=== PATIENT | male | born 1965 | race Caucasian/White ===

== ENCOUNTER 2021-09-10 16:07 | Inpatient (IN) | payer MEDICAID, SELFPAY ==
[~2021-09-10] VITALS: Ht 170.2 cm; Wt 68.0 kg
[2021-09-10] MEDS ORDERED: NALOXONE HCL 2 MG/2 ML SYR IVP ONE (16:15)
[2021-09-10] MEDS ORDERED: NALOXONE HCL 0.4 MG/ML AMP (NARCAN) ONE (16:17)
[2021-09-10 16:27] VITALS: BP_SYST 112
[2021-09-10] MEDS ORDERED: PIPERACILLIN/TAZO 3.375 GM in NS 50 ML IV ONE (17:00)
[2021-09-10] MEDS ORDERED: NACL 0.9% 2,000 ML IV ONE (17:00)
[2021-09-10] MEDS ORDERED: VANCOMYCIN HCL 1,000 MG in NS 250 ML IV ONE (17:00)
[2021-09-10] MEDS ORDERED: PIPERACILLIN/TAZOBACTAM 3.375 GM/VIAL (ZOSYN) IV ONE (18:03)
[2021-09-10] MEDS ORDERED: VANCOMYCIN HCL 1000 MG/VIAL IV ONE (18:03)
[2021-09-10 18:25] LABS: HEMATOCRIT 33.2 % (36-54); HEMOGLOBIN 10.9 g/dL (14.0-18.0); MEAN CORPUSCULAR HEMOGLOBIN 31 pg (27-31); MEAN CORPUSCULAR HGB CONC 33 % (32-36); MEAN CORPUSCULAR VOLUME 95 fL (79.0-98.0); PLATELET COUNT (AUTO) 244 K/uL (130-430); RED BLOOD CELL COUNT(AUTO) 3.48 MIL/uL (4.2-6.2); RED CELL DISTRIBUTION WIDTH 14.5 % (9.0-15.0); WHITE BLOOD COUNT (AUTO) 13.1 K/uL (4.8-10.8)
[2021-09-10 18:59] LABS: CHLORIDE 88 mmol/L (98-107); GLUCOSE 119 mg/dL (70-99); POTASSIUM 4.8 mmol/L (3.5-5.1); SODIUM SERUM 138 mmol/L (136-145)
[2021-09-10 19:00] LABS: ACETAMINOPHEN < 1 ug/mL (1-30); ALANINE AMINOTRANSFERASE 26 U/L (12-78); ALBUMIN 1.7 g/dL (3.4-4.8); ALCOHOL, BLOOD < 3 mg/dL (<10); ASPARTATE AMINOTRANSFERASE 14 U/L (10-37); CALCIUM 9.3 mg/dL (8.4-11.0); CREATININE 0.34 mg/dL (0.55-1.30); GFR AFRICAN AMERICAN 345 mL/min (>90); TOTAL BILIRUBIN 0.2 mg/dL (0.0-1.0); UREA NITROGEN, BLOOD 19 mg/dL (8-21)
[2021-09-10] MEDS ORDERED: NACL 0.9% 1,000 ML IV ONE (19:00)
[2021-09-10 19:03] LABS: ANION GAP 3 (5-15)
[2021-09-10 19:05] LABS: PROTHROMBIN TIME 10.2 SECS (9.5-12.5)
[2021-09-10 19:54] LABS: BAND % (MANUAL) 36 % (0-6); BASOPHILS % (MANUAL) 0 % (0-2); EOSINOPHILS % (MANUAL) 0 % (0-7); LYMPHOCYTES % (MANUAL) 4 % (20-46); MONOCYTES % (MANUAL) 9 % (0-11)
[2021-09-10] MEDS ORDERED: ALBUTEROL SULFATE 0.083% 2.5 MG/3 ML VIAL.NEB INH ONE (22:30)
[2021-09-10 23:15] LABS: CALCIUM 8.6 mg/dL (8.4-11.0); CREATININE 0.34 mg/dL (0.55-1.30); POTASSIUM 3.9 mmol/L (3.5-5.1)
[2021-09-10 23:18] LABS: BARBITURATE, URINE NEGATIVE (NEG <=200); BENZODIAZEPINE, URINE NEGATIVE (NEG <=150); CANNABINOID, URINE NEGATIVE (NEG <=50); COCAINE, URINE NEGATIVE (NEG <=150); METHAMPHETAMINES SCREEN,URINE NEGATIVE (NEG <=500); OPIATE, URINE NEGATIVE (NEG <=100); PHENCYCLIDINE SCREEN,URINE NEGATIVE (NEG <=25); UR TRICYCLIC ANTIDEPRESSANTS NEGATIVE (NEG <=300); URINE AMPHETAMINE NEGATIVE (NEG <=500); URINE METHADONE NEGATIVE (NEG <=200); URINE OXYCODONE SCREEN NEGATIVE (NEG <=100); URINE PROPOXYPHENE SCREEN NEGATIVE (NEG <=300)
[2021-09-11] VITALS (25 sets, daily range): BP systolic 85–144
[2021-09-11] MEDS ORDERED: PIPERACILLIN/TAZOBACTAM 3.375 GM/VIAL (ZOSYN) IV ONE (03:20)
[2021-09-11] MEDS ORDERED: IPRATROPIUM/ALBUTEROL SULFATE 3 ML AMPUL.NEB (DUONEB) INH PRN (04:30)
[2021-09-11 04:59] LABS: RED CELL DISTRIBUTION WIDTH 14.7 % (9.0-15.0)
[2021-09-11 05:10] LABS: MEAN CORPUSCULAR HGB CONC 33 % (32-36); MEAN CORPUSCULAR VOLUME 95 fL (79.0-98.0); NEUTROPHILS # (AUTO) 10.2 K/uL (1.8-7.7)
[2021-09-11 05:11] LABS: HEMATOCRIT 27.7 % (36-54); HEMOGLOBIN 9.1 g/dL (14.0-18.0); MEAN CORPUSCULAR HEMOGLOBIN 31 pg (27-31); NEUTROPHILS % (AUTO) 81.2 % (40.0-70.0); PLATELET COUNT (AUTO) 236 K/uL (130-430); RED BLOOD CELL COUNT(AUTO) 2.91 MIL/uL (4.2-6.2); WHITE BLOOD COUNT (AUTO) 12.6 K/uL (4.8-10.8)
[2021-09-11 05:12] LABS: EOSINOPHILS % (AUTO) 0.2 % (0.0-4.0); LYMPHOCYTES # (AUTO) 1.2 K/uL (1.0-5.5); LYMPHOCYTES % (AUTO) 9.2 % (20.5-51.5); MONOCYTES # (AUTO) 1.2 K/uL (0.0-1.0); MONOCYTES % (AUTO) 9.4 % (1.7-9.3)
[2021-09-11 05:14] LABS: ALBUMIN 1.3 g/dL (3.4-4.8); CALCIUM 7.9 mg/dL (8.4-11.0); CREATININE 0.4 mg/dL (0.55-1.30); TOTAL BILIRUBIN 0.7 mg/dL (0.0-1.0)
[2021-09-11 05:17] LABS: PHOSPHORUS 0.9 mg/dL (2.7-4.5)
[2021-09-11] MEDS ORDERED: PIPERACILLIN/TAZO 3.375/DEX-IS 50 ML IV SCH (06:00)
[2021-09-11] MEDS ORDERED: AZITHROMYCIN 500 MG in NS 250 ML IV ONE (08:00)
[2021-09-11] MEDS: ACETAMINOPHEN 650 MG/20.3 ML UDC GT PRN (08:07)
[2021-09-11] MEDS ORDERED: LEVO50TA8 GT (08:37)
[2021-09-11] MEDS ORDERED: HYT1 GT (08:37)
[2021-09-11] MEDS ORDERED: DICL20GE TP (08:37)
[2021-09-11] MEDS ORDERED: RILU50TA13 GT (08:37)
[2021-09-11] MEDS ORDERED: ATOR10TA68 GT (08:37)
[2021-09-11] MEDS ORDERED: SER100 GT (08:37)
[2021-09-11] MEDS ORDERED: ACYC400T19 GT (08:37)
[2021-09-11] MEDS ORDERED: MELA1TAB29 GT (08:37)
[2021-09-11] MEDS ORDERED: POLY17PO4 GT (08:37)
[2021-09-11] MEDS ORDERED: VITD400 GT (08:37)
[2021-09-11] MEDS ORDERED: SENN8.6T19 PO (08:37)
[2021-09-11] MEDS ORDERED: SER25 GT (08:37)
[2021-09-11] MEDS ORDERED: PANT40SU2 GT (08:37)
[2021-09-11] MEDS ORDERED: IPRA3AMP9 INH (08:37)
[2021-09-11] MEDS ORDERED: BACL10TA GT (08:37)
[2021-09-11] MEDS ORDERED: HEPA500015 SUBCUT (08:37)
[2021-09-11] MEDS ORDERED: HYDR-3698 GT (08:37)
[2021-09-11] MEDS ORDERED: DIPH25CA83 GT (08:37)
[2021-09-11] MEDS ORDERED: GABA300S GT (08:37)
[2021-09-11] MEDS ORDERED: PRED10TA GT (08:37)
[2021-09-11] MEDS: PANTOPRAZOLE SODIUM 40 MG/VIAL (PROTONIX) IVP SCH (09:19)
[2021-09-11] MEDS: VANCOMYCIN HCL 1,250 MG in NS 250 ML IV SCH ×2 (09:53→16:36)
[2021-09-11] MEDS: PIPERACILLIN/TAZO 3.375/DEX-IS 50 ML IV SCH ×2 (12:33→20:10)
[2021-09-11] MEDS: IPRATROPIUM/ALBUTEROL SULFATE 3 ML AMPUL.NEB (DUONEB) INH SCH ×2 (13:00→19:20)
[2021-09-11] MEDS: NACL 0.9% 1,000 ML IV SCH (16:36)
[2021-09-11] MEDS ORDERED: K PHOS 30 MM in NS 250 ML IV ONE (21:00)
[2021-09-12] VITALS (30 sets, daily range): BP systolic 103–150
[2021-09-12] MEDS: IPRATROPIUM/ALBUTEROL SULFATE 3 ML AMPUL.NEB (DUONEB) INH SCH ×3 (00:19→12:15)
[2021-09-12] MEDS: VANCOMYCIN HCL 1,250 MG in NS 250 ML IV SCH ×2 (00:41→07:43)
[2021-09-12] MEDS: PIPERACILLIN/TAZO 3.375/DEX-IS 50 ML IV SCH ×3 (04:46→20:37)
[2021-09-12 06:07] LABS: EOSINOPHILS # (AUTO) 0.1 K/uL (0.0-0.4); EOSINOPHILS % (AUTO) 0.4 % (0.0-4.0); HEMATOCRIT 29.7 % (36-54); HEMOGLOBIN 9.9 g/dL (14.0-18.0); LYMPHOCYTES # (AUTO) 0.9 K/uL (1.0-5.5); MEAN CORPUSCULAR HEMOGLOBIN 31 pg (27-31); MEAN CORPUSCULAR HGB CONC 33 % (32-36); MEAN CORPUSCULAR VOLUME 94 fL (79.0-98.0); MONOCYTES # (AUTO) 1.8 K/uL (0.0-1.0); NEUTROPHILS % (AUTO) 81.6 % (40.0-70.0); PLATELET COUNT (AUTO) 238 K/uL (130-430); RED BLOOD CELL COUNT(AUTO) 3.16 MIL/uL (4.2-6.2); RED CELL DISTRIBUTION WIDTH 15.2 % (9.0-15.0); WHITE BLOOD COUNT (AUTO) 14.7 K/uL (4.8-10.8)
[2021-09-12 06:33] LABS: ALBUMIN 1.4 g/dL (3.4-4.8); CALCIUM 8.2 mg/dL (8.4-11.0); CREATININE 0.43 mg/dL (0.55-1.30); PHOSPHORUS 4.9 mg/dL (2.7-4.5); TOTAL BILIRUBIN 0.7 mg/dL (0.0-1.0)
[2021-09-12 07:17] LABS: POTASSIUM 2.6 mmol/L (3.5-5.1)
[2021-09-12] MEDS: NACL 0.9% 1,000 ML IV SCH (07:50)
[2021-09-12] MEDS ORDERED: POTASSIUM CHLORIDE 20 MEQ/PKT PACKET PO ONE (08:15)
[2021-09-12] MEDS ORDERED: COMMUNICATION ORDER XX ONE (08:45)
[2021-09-12] MEDS: AZITHROMYCIN 250 MG in NS 250 ML IV SCH (09:06)
[2021-09-12] MEDS: PANTOPRAZOLE SODIUM 40 MG/VIAL (PROTONIX) IVP SCH (09:07)
[2021-09-12] MEDS ORDERED: POTASSIUM CHLORIDE 40 MEQ in D5W 250 ML IV ONE (09:30)
[2021-09-12] MEDS: ACETAMINOPHEN 650 MG/20.3 ML UDC GT PRN (12:26)
[2021-09-13] VITALS (27 sets, daily range): BP systolic 125–153
[2021-09-13 06:08] LABS: LYMPHOCYTES # (AUTO) 0.8 K/uL (1.0-5.5)
[2021-09-13 06:14] LABS: CREATININE 0.91 mg/dL (0.55-1.30)
[2021-09-13 06:20] LABS: POTASSIUM 2.7 mmol/L (3.5-5.1)
[2021-09-13] MEDS: PIPERACILLIN/TAZO 3.375/DEX-IS 50 ML IV SCH ×3 (06:21→21:43)
[2021-09-13] MEDS: NACL 0.9% 1,000 ML IV SCH ×2 (06:21→18:33)
[2021-09-13 06:45] LABS: VANCOMYCIN,RANDOM 23.5 ug/mL
[2021-09-13 07:02] LABS: BASOPHILS % (AUTO) 0.1 % (0.0-2.0); EOSINOPHILS % (AUTO) 0.2 % (0.0-4.0); HEMATOCRIT 31.9 % (36-54); HEMOGLOBIN 10.7 g/dL (14.0-18.0); LYMPHOCYTES % (AUTO) 4.4 % (20.5-51.5); MEAN CORPUSCULAR HEMOGLOBIN 32 pg (27-31); MEAN CORPUSCULAR HGB CONC 33 % (32-36); MEAN CORPUSCULAR VOLUME 95 fL (79.0-98.0); MONOCYTES # (AUTO) 1.3 K/uL (0.0-1.0); MONOCYTES % (AUTO) 7.2 % (1.7-9.3); NEUTROPHILS # (AUTO) 15.5 K/uL (1.8-7.7); NEUTROPHILS % (AUTO) 88.1 % (40.0-70.0); PLATELET COUNT (AUTO) 265 K/uL (130-430); RED BLOOD CELL COUNT(AUTO) 3.38 MIL/uL (4.2-6.2); RED CELL DISTRIBUTION WIDTH 15.5 % (9.0-15.0); WHITE BLOOD COUNT (AUTO) 17.6 K/uL (4.8-10.8)
[2021-09-13] MEDS: IPRATROPIUM/ALBUTEROL SULFATE 3 ML AMPUL.NEB (DUONEB) INH SCH ×3 (07:13→19:44)
[2021-09-13] MEDS: PANTOPRAZOLE SODIUM 40 MG/VIAL (PROTONIX) IVP SCH (08:32)
[2021-09-13] MEDS: AZITHROMYCIN 250 MG in NS 250 ML IV SCH (08:32)
[2021-09-13] MEDS ORDERED: COMMUNICATION ORDER XX ONE (10:30)
[2021-09-13] MEDS ORDERED: POTASSIUM CHLORIDE 20 MEQ/PKT PACKET PO ONE (10:45)
[2021-09-13] MEDS: VANCOMYCIN HCL 1,000 MG in NS 250 ML IV SCH ×2 (11:38→23:13)
[2021-09-13] MEDS: POTASSIUM CHLORIDE 20 mEq in 100 mL (PREMIX) 100 ML x 2 doses IV SCH ×2 (11:42→14:00)
[2021-09-14] MEDS: IPRATROPIUM/ALBUTEROL SULFATE 3 ML AMPUL.NEB (DUONEB) INH SCH ×3 (00:30→23:19)
[2021-09-14 01:00] VITALS: BP_SYST 140
[2021-09-14] MEDS: PIPERACILLIN/TAZO 3.375/DEX-IS 50 ML IV SCH ×3 (03:43→20:12)
[2021-09-14 06:38] LABS: BASOPHILS % (AUTO) 0.1 % (0.0-2.0); EOSINOPHILS # (AUTO) 0.1 K/uL (0.0-0.4); EOSINOPHILS % (AUTO) 0.4 % (0.0-4.0); HEMATOCRIT 29.9 % (36-54); HEMOGLOBIN 9.8 g/dL (14.0-18.0); LYMPHOCYTES # (AUTO) 0.9 K/uL (1.0-5.5); LYMPHOCYTES % (AUTO) 4.6 % (20.5-51.5); MEAN CORPUSCULAR HEMOGLOBIN 31 pg (27-31); MEAN CORPUSCULAR HGB CONC 33 % (32-36); MEAN CORPUSCULAR VOLUME 96 fL (79.0-98.0); MONOCYTES # (AUTO) 1.2 K/uL (0.0-1.0); MONOCYTES % (AUTO) 6.6 % (1.7-9.3); NEUTROPHILS # (AUTO) 16.7 K/uL (1.8-7.7); NEUTROPHILS % (AUTO) 88.3 % (40.0-70.0); PLATELET COUNT (AUTO) 263 K/uL (130-430); RED BLOOD CELL COUNT(AUTO) 3.13 MIL/uL (4.2-6.2); RED CELL DISTRIBUTION WIDTH 15.5 % (9.0-15.0); WHITE BLOOD COUNT (AUTO) 18.9 K/uL (4.8-10.8)
[2021-09-14] MEDS ORDERED: POTASSIUM CHLORIDE 20 MEQ/PKT PACKET GT ONE (07:15)
[2021-09-14 07:53] VITALS: BP_SYST 139
[2021-09-14] MEDS: PANTOPRAZOLE SODIUM 40 MG/VIAL (PROTONIX) IVP SCH (07:59)
[2021-09-14 08:00] VITALS: BP_SYST 139
[2021-09-14] MEDS ORDERED: POTASSIUM CHLORIDE 40 MEQ in NS 250 ML IV ONE (08:00)
[2021-09-14 08:24] LABS: ALBUMIN 1.5 g/dL (3.4-4.8); CALCIUM 8.1 mg/dL (8.4-11.0); CREATININE 1.02 mg/dL (0.55-1.30); TOTAL BILIRUBIN 0.4 mg/dL (0.0-1.0)
[2021-09-14 08:27] LABS: POTASSIUM 2.8 mmol/L (3.5-5.1)
[2021-09-14] MEDS: AZITHROMYCIN 250 MG in NS 250 ML IV SCH (08:59)
[2021-09-14] MEDS: NACL 0.9% 1,000 ML IV SCH (08:59)
[2021-09-14] MEDS ORDERED: *LOVENOX 1MG/KG Q24H/PHARMACY XX ONE (09:45)
[2021-09-14] MEDS ORDERED: ENOXAPARIN SODIUM 40 MG/0.4 ML SYRINGE SUBCUT ONE (10:15)
[2021-09-14] MEDS: VANCOMYCIN HCL 1,000 MG in NS 250 ML IV SCH (10:34)
[2021-09-14 12:00] VITALS: BP_SYST 125
[2021-09-14] MEDS: ACETAMINOPHEN 650 MG/20.3 ML UDC GT PRN (13:16)
[2021-09-14 14:48] LABS: CALCIUM 7.6 mg/dL (8.4-11.0); CREATININE 1.1 mg/dL (0.55-1.30); POTASSIUM 3.8 mmol/L (3.5-5.1)
[2021-09-14 16:00] VITALS: BP_SYST 134
[2021-09-14 20:00] VITALS: BP_SYST 149
[2021-09-14] MEDS: METOCLOPRAMIDE HCL 10 MG/10 ML UDC GT SCH (20:12)
[2021-09-14] MEDS: MELATONIN 5 MG TABLET PO SCH (20:14)
[2021-09-15] MEDS: IPRATROPIUM/ALBUTEROL SULFATE 3 ML AMPUL.NEB (DUONEB) INH SCH ×4 (02:00→20:08)
[2021-09-15 02:01] VITALS: BP_SYST 132
[2021-09-15] MEDS: PIPERACILLIN/TAZO 3.375/DEX-IS 50 ML IV SCH ×3 (03:26→20:47)
[2021-09-15 06:36] LABS: BASOPHILS % (AUTO) 0.1 % (0.0-2.0); EOSINOPHILS # (AUTO) 0.1 K/uL (0.0-0.4); EOSINOPHILS % (AUTO) 0.7 % (0.0-4.0); HEMATOCRIT 31.1 % (36-54); LYMPHOCYTES # (AUTO) 1.4 K/uL (1.0-5.5); LYMPHOCYTES % (AUTO) 7.2 % (20.5-51.5); MEAN CORPUSCULAR HEMOGLOBIN 31 pg (27-31); MEAN CORPUSCULAR HGB CONC 32 % (32-36); MEAN CORPUSCULAR VOLUME 97 fL (79.0-98.0); MONOCYTES # (AUTO) 0.9 K/uL (0.0-1.0); MONOCYTES % (AUTO) 4.9 % (1.7-9.3); NEUTROPHILS # (AUTO) 16.5 K/uL (1.8-7.7); NEUTROPHILS % (AUTO) 87.1 % (40.0-70.0); PLATELET COUNT (AUTO) 289 K/uL (130-430); RED CELL DISTRIBUTION WIDTH 15.6 % (9.0-15.0)
[2021-09-15 06:48] LABS: CALCIUM 8.2 mg/dL (8.4-11.0); CREATININE 1.03 mg/dL (0.55-1.30)
[2021-09-15] MEDS: 0.45% NACL 1,000 ML IV SCH ×3 (08:15→20:25)
[2021-09-15] MEDS: PANTOPRAZOLE SODIUM 40 MG/VIAL (PROTONIX) IVP SCH (08:16)
[2021-09-15] MEDS: METOCLOPRAMIDE HCL 10 MG/10 ML UDC GT SCH ×2 (08:16→22:48)
[2021-09-15] MEDS: ENOXAPARIN SODIUM 40 MG/0.4 ML SYRINGE SUBCUT SCH (08:16)
[2021-09-15 08:43] VITALS: BP_SYST 148
[2021-09-15] MEDS ORDERED: FLUMAZENIL 0.1 MG/ML IVP ONE (10:45)
[2021-09-15 12:00] VITALS: BP_SYST 150
[2021-09-15 13:23] VITALS: BP_SYST 159
[2021-09-15 16:00] VITALS: BP_SYST 140
[2021-09-15 20:52] VITALS: BP_SYST 147
[2021-09-15] MEDS: MELATONIN 5 MG TABLET PO SCH (22:48)
[2021-09-16 01:57] VITALS: BP_SYST 140
[2021-09-16] MEDS: 0.45% NACL 1,000 ML IV SCH ×3 (02:55→23:03)
[2021-09-16] MEDS: IPRATROPIUM/ALBUTEROL SULFATE 3 ML AMPUL.NEB (DUONEB) INH SCH ×4 (03:24→20:19)
[2021-09-16] MEDS: PIPERACILLIN/TAZO 3.375/DEX-IS 50 ML IV SCH ×3 (04:07→20:29)
[2021-09-16 08:00] VITALS: BP_SYST 145
[2021-09-16] MEDS: ENOXAPARIN SODIUM 40 MG/0.4 ML SYRINGE SUBCUT SCH (09:00)
[2021-09-16] MEDS: PANTOPRAZOLE SODIUM 40 MG/VIAL (PROTONIX) IVP SCH (09:00)
[2021-09-16] MEDS: METOCLOPRAMIDE HCL 10 MG/10 ML UDC GT SCH ×2 (09:00→20:29)
[2021-09-16 13:43] VITALS: BP_SYST 143
[2021-09-16 18:08] VITALS: BP_SYST 147
[2021-09-16 20:00] VITALS: BP_SYST 151
[2021-09-16] MEDS: MELATONIN 5 MG TABLET PO SCH (20:29)
[2021-09-16] MEDS: CIPROFLOXACIN LACT 400 MG/D5W 200 ML IV SCH (20:31)
[2021-09-17 01:23] VITALS: BP_SYST 146
[2021-09-17] MEDS: IPRATROPIUM/ALBUTEROL SULFATE 3 ML AMPUL.NEB (DUONEB) INH SCH ×4 (03:20→19:49)
[2021-09-17] MEDS: PIPERACILLIN/TAZO 3.375/DEX-IS 50 ML IV SCH ×3 (03:26→19:38)
[2021-09-17 07:30] LABS: BASOPHILS % (AUTO) 0.2 % (0.0-2.0); EOSINOPHILS # (AUTO) 0.4 K/uL (0.0-0.4); EOSINOPHILS % (AUTO) 1.7 % (0.0-4.0); HEMATOCRIT 34.2 % (36-54); HEMOGLOBIN 11.1 g/dL (14.0-18.0); LYMPHOCYTES % (AUTO) 4.4 % (20.5-51.5); MEAN CORPUSCULAR HEMOGLOBIN 32 pg (27-31); MEAN CORPUSCULAR HGB CONC 33 % (32-36); MEAN CORPUSCULAR VOLUME 97 fL (79.0-98.0); MONOCYTES # (AUTO) 0.9 K/uL (0.0-1.0); MONOCYTES % (AUTO) 3.9 % (1.7-9.3); NEUTROPHILS # (AUTO) 20.6 K/uL (1.8-7.7); NEUTROPHILS % (AUTO) 89.8 % (40.0-70.0); PLATELET COUNT (AUTO) 353 K/uL (130-430); RED BLOOD CELL COUNT(AUTO) 3.54 MIL/uL (4.2-6.2); RED CELL DISTRIBUTION WIDTH 15.3 % (9.0-15.0)
[2021-09-17 08:00] VITALS: BP_SYST 148
[2021-09-17 08:07] LABS: CALCIUM 7.5 mg/dL (8.4-11.0); CREATININE 0.9 mg/dL (0.55-1.30)
[2021-09-17 08:20] LABS: POTASSIUM 2.9 mmol/L (3.5-5.1)
[2021-09-17] MEDS: CIPROFLOXACIN LACT 400 MG/D5W 200 ML IV SCH ×2 (09:53→21:08)
[2021-09-17] MEDS: ENOXAPARIN SODIUM 40 MG/0.4 ML SYRINGE SUBCUT SCH (09:54)
[2021-09-17] MEDS: METOCLOPRAMIDE HCL 10 MG/10 ML UDC GT SCH ×2 (09:54→21:07)
[2021-09-17] MEDS: PANTOPRAZOLE SODIUM 40 MG/VIAL (PROTONIX) IVP SCH (09:54)
[2021-09-17] MEDS: KCL 20 mEq in 100 mL (PREMIX) 100 ML IV SCH ×3 (09:55→14:35)
[2021-09-17] MEDS: 0.45% NACL 1,000 ML IV SCH ×2 (09:56→19:45)
[2021-09-17 12:28] VITALS: BP_SYST 153
[2021-09-17 12:29] VITALS: BP_SYST 153
[2021-09-17] MEDS: ACETAMINOPHEN 650 MG/20.3 ML UDC GT PRN ×2 (15:15→22:35)
[2021-09-17 16:37] VITALS: BP_SYST 146
[2021-09-17 20:00] VITALS: BP_SYST 137
[2021-09-17] MEDS: MELATONIN 5 MG TABLET PO SCH (21:08)
[2021-09-18] MEDS: IPRATROPIUM/ALBUTEROL SULFATE 3 ML AMPUL.NEB (DUONEB) INH SCH ×4 (01:01→19:40)
[2021-09-18] MEDS: 0.45% NACL 1,000 ML IV SCH ×3 (01:45→19:00)
[2021-09-18] MEDS: PIPERACILLIN/TAZO 3.375/DEX-IS 50 ML IV SCH ×3 (03:55→21:01)
[2021-09-18 04:00] VITALS: BP_SYST 142
[2021-09-18 07:08] LABS: BASOPHILS % (AUTO) 0.2 % (0.0-2.0); EOSINOPHILS # (AUTO) 0.4 K/uL (0.0-0.4); EOSINOPHILS % (AUTO) 2.6 % (0.0-4.0); HEMATOCRIT 29.3 % (36-54); HEMOGLOBIN 9.6 g/dL (14.0-18.0); LYMPHOCYTES # (AUTO) 1.1 K/uL (1.0-5.5); LYMPHOCYTES % (AUTO) 6.8 % (20.5-51.5); MEAN CORPUSCULAR HEMOGLOBIN 32 pg (27-31); MEAN CORPUSCULAR HGB CONC 33 % (32-36); MEAN CORPUSCULAR VOLUME 96 fL (79.0-98.0); MONOCYTES # (AUTO) 0.8 K/uL (0.0-1.0); MONOCYTES % (AUTO) 4.7 % (1.7-9.3); NEUTROPHILS % (AUTO) 85.7 % (40.0-70.0); PLATELET COUNT (AUTO) 366 K/uL (130-430); RED BLOOD CELL COUNT(AUTO) 3.05 MIL/uL (4.2-6.2); RED CELL DISTRIBUTION WIDTH 15.7 % (9.0-15.0)
[2021-09-18 07:21] LABS: CALCIUM 7.4 mg/dL (8.4-11.0); CREATININE 0.78 mg/dL (0.55-1.30); POTASSIUM 3.5 mmol/L (3.5-5.1)
[2021-09-18 08:00] VITALS: BP_SYST 129
[2021-09-18 08:32] LABS: WHITE BLOOD COUNT (AUTO) 16.3 K/uL (4.8-10.8)
[2021-09-18] MEDS: RILUZOLE 50 MG TABLET GT SCH ×2 (09:00→21:33)
[2021-09-18] MEDS: METOCLOPRAMIDE HCL 10 MG/10 ML UDC GT SCH ×2 (09:44→21:33)
[2021-09-18] MEDS: PANTOPRAZOLE SODIUM 40 MG/VIAL (PROTONIX) IVP SCH (09:44)
[2021-09-18] MEDS: ENOXAPARIN SODIUM 40 MG/0.4 ML SYRINGE SUBCUT SCH (09:45)
[2021-09-18] MEDS: CIPROFLOXACIN LACT 400 MG/D5W 200 ML IV SCH ×2 (09:46→21:33)
[2021-09-18 13:02] VITALS: BP_SYST 140
[2021-09-18] MEDS: ACETAMINOPHEN 650 MG/20.3 ML UDC GT PRN (14:54)
[2021-09-18 16:00] VITALS: BP_SYST 135
[2021-09-18 20:27] VITALS: BP_SYST 134
[2021-09-18] MEDS ORDERED: NALOXONE HCL 0.4 MG/ML AMP (NARCAN) IVP PRN (20:30)
[2021-09-18] MEDS: HYDROcodone/ACETAMIN 5-325 MG TAB (NORCO/ VICODIN) PO PRN (20:37)
[2021-09-18 21:31] VITALS: BP_SYST 119
[2021-09-18] MEDS: MELATONIN 5 MG TABLET PO SCH (21:33)
[2021-09-19] MEDS: 0.45% NACL 1,000 ML IV SCH ×4 (00:05→18:07)
[2021-09-19] MEDS: IPRATROPIUM/ALBUTEROL SULFATE 3 ML AMPUL.NEB (DUONEB) INH SCH ×4 (01:31→19:55)
[2021-09-19] MEDS: HYDROcodone/ACETAMIN 5-325 MG TAB (NORCO/ VICODIN) PO PRN (02:22)
[2021-09-19] MEDS: PIPERACILLIN/TAZO 3.375/DEX-IS 50 ML IV SCH ×3 (05:05→21:23)
[2021-09-19 08:00] VITALS: BP_SYST 144
[2021-09-19] MEDS: CIPROFLOXACIN LACT 400 MG/D5W 200 ML IV SCH ×2 (10:07→21:29)
[2021-09-19] MEDS: PANTOPRAZOLE SODIUM 40 MG/VIAL (PROTONIX) IVP SCH (10:08)
[2021-09-19] MEDS: RILUZOLE 50 MG TABLET GT SCH ×2 (10:08→21:23)
[2021-09-19] MEDS: METOCLOPRAMIDE HCL 10 MG/10 ML UDC GT SCH ×2 (10:08→21:23)
[2021-09-19] MEDS: ENOXAPARIN SODIUM 40 MG/0.4 ML SYRINGE SUBCUT SCH (10:14)
[2021-09-19 13:00] LABS: BASOPHILS % (AUTO) 0.1 % (0.0-2.0); EOSINOPHILS # (AUTO) 0.3 K/uL (0.0-0.4); EOSINOPHILS % (AUTO) 2.3 % (0.0-4.0); HEMATOCRIT 32.2 % (36-54); HEMOGLOBIN 10.5 g/dL (14.0-18.0); LYMPHOCYTES % (AUTO) 6.7 % (20.5-51.5); MEAN CORPUSCULAR HEMOGLOBIN 31 pg (27-31); MEAN CORPUSCULAR HGB CONC 33 % (32-36); MEAN CORPUSCULAR VOLUME 96 fL (79.0-98.0); MONOCYTES % (AUTO) 6.7 % (1.7-9.3); NEUTROPHILS # (AUTO) 12.7 K/uL (1.8-7.7); NEUTROPHILS % (AUTO) 84.2 % (40.0-70.0); PLATELET COUNT (AUTO) 392 K/uL (130-430); RED BLOOD CELL COUNT(AUTO) 3.36 MIL/uL (4.2-6.2); RED CELL DISTRIBUTION WIDTH 15.5 % (9.0-15.0); WHITE BLOOD COUNT (AUTO) 15.1 K/uL (4.8-10.8)
[2021-09-19 13:09] VITALS: BP_SYST 150
[2021-09-19 18:17] VITALS: BP_SYST 125
[2021-09-19 21:04] VITALS: BP_SYST 118
[2021-09-19] MEDS: MELATONIN 5 MG TABLET PO SCH (21:29)
[2021-09-20] MEDS: ACETAMINOPHEN 650 MG/20.3 ML UDC GT PRN (00:09)
[2021-09-20] MEDS: 0.45% NACL 1,000 ML IV SCH ×4 (00:25→20:25)
[2021-09-20 00:59] VITALS: BP_SYST 126
[2021-09-20] MEDS: IPRATROPIUM/ALBUTEROL SULFATE 3 ML AMPUL.NEB (DUONEB) INH SCH ×4 (01:00→20:33)
[2021-09-20] MEDS: PIPERACILLIN/TAZO 3.375/DEX-IS 50 ML IV SCH ×3 (06:03→20:52)
[2021-09-20 07:11] LABS: BASOPHILS % (AUTO) 0.2 % (0.0-2.0); EOSINOPHILS # (AUTO) 0.3 K/uL (0.0-0.4); EOSINOPHILS % (AUTO) 1.6 % (0.0-4.0); HEMATOCRIT 36.2 % (36-54); HEMOGLOBIN 11.9 g/dL (14.0-18.0); LYMPHOCYTES # (AUTO) 1.7 K/uL (1.0-5.5); LYMPHOCYTES % (AUTO) 10.1 % (20.5-51.5); MEAN CORPUSCULAR HEMOGLOBIN 32 pg (27-31); MEAN CORPUSCULAR HGB CONC 33 % (32-36); MEAN CORPUSCULAR VOLUME 96 fL (79.0-98.0); MONOCYTES # (AUTO) 1.3 K/uL (0.0-1.0); NEUTROPHILS # (AUTO) 13.5 K/uL (1.8-7.7); NEUTROPHILS % (AUTO) 80.1 % (40.0-70.0); PLATELET COUNT (AUTO) 453 K/uL (130-430); RED BLOOD CELL COUNT(AUTO) 3.77 MIL/uL (4.2-6.2); RED CELL DISTRIBUTION WIDTH 15.3 % (9.0-15.0); WHITE BLOOD COUNT (AUTO) 16.8 K/uL (4.8-10.8)
[2021-09-20 07:54] LABS: CREATININE 0.69 mg/dL (0.55-1.30); POTASSIUM 4.4 mmol/L (3.5-5.1)
[2021-09-20 07:58] LABS: CALCIUM 6.6 mg/dL (8.4-11.0)
[2021-09-20 08:00] VITALS: BP_SYST 135
[2021-09-20] MEDS: ENOXAPARIN SODIUM 40 MG/0.4 ML SYRINGE SUBCUT SCH (10:24)
[2021-09-20] MEDS: CIPROFLOXACIN LACT 400 MG/D5W 200 ML IV SCH ×2 (10:25→21:59)
[2021-09-20] MEDS: RILUZOLE 50 MG TABLET GT SCH ×2 (10:26→21:59)
[2021-09-20] MEDS: PANTOPRAZOLE SODIUM 40 MG/VIAL (PROTONIX) IVP SCH (10:26)
[2021-09-20] MEDS: METOCLOPRAMIDE HCL 10 MG/10 ML UDC GT SCH ×2 (10:26→21:57)
[2021-09-20 11:38] VITALS: BP_SYST 143
[2021-09-20 15:45] VITALS: BP_SYST 112
[2021-09-20] MEDS: HYDROcodone/ACETAMIN 5-325 MG TAB (NORCO/ VICODIN) PO PRN (17:37)
[2021-09-20 20:17] VITALS: BP_SYST 114
[2021-09-20] MEDS: MELATONIN 5 MG TABLET PO SCH (21:58)
[2021-09-21 00:30] VITALS: BP_SYST 124
[2021-09-21] MEDS: PIPERACILLIN/TAZO 3.375/DEX-IS 50 ML IV SCH ×3 (04:09→20:46)
[2021-09-21] MEDS: 0.45% NACL 1,000 ML IV SCH ×4 (04:09→23:05)
[2021-09-21] MEDS: IPRATROPIUM/ALBUTEROL SULFATE 3 ML AMPUL.NEB (DUONEB) INH SCH ×2 (07:00→19:55)
[2021-09-21 07:04] LABS: BASOPHILS % (AUTO) 0.2 % (0.0-2.0); EOSINOPHILS # (AUTO) 0.2 K/uL (0.0-0.4); EOSINOPHILS % (AUTO) 1.2 % (0.0-4.0); HEMATOCRIT 29.8 % (36-54); HEMOGLOBIN 10.2 g/dL (14.0-18.0); LYMPHOCYTES # (AUTO) 1.2 K/uL (1.0-5.5); LYMPHOCYTES % (AUTO) 8.7 % (20.5-51.5); MEAN CORPUSCULAR HEMOGLOBIN 32 pg (27-31); MEAN CORPUSCULAR HGB CONC 34 % (32-36); MEAN CORPUSCULAR VOLUME 94 fL (79.0-98.0); MONOCYTES % (AUTO) 6.7 % (1.7-9.3); NEUTROPHILS # (AUTO) 11.8 K/uL (1.8-7.7); NEUTROPHILS % (AUTO) 83.2 % (40.0-70.0); PLATELET COUNT (AUTO) 470 K/uL (130-430); RED BLOOD CELL COUNT(AUTO) 3.18 MIL/uL (4.2-6.2); RED CELL DISTRIBUTION WIDTH 15.3 % (9.0-15.0); WHITE BLOOD COUNT (AUTO) 14.2 K/uL (4.8-10.8)
[2021-09-21 07:29] LABS: CREATININE 0.57 mg/dL (0.55-1.30); POTASSIUM 3.3 mmol/L (3.5-5.1)
[2021-09-21 08:02] LABS: CALCIUM 6.6 mg/dL (8.4-11.0)
[2021-09-21 08:15] VITALS: BP_SYST 128
[2021-09-21] MEDS: METOCLOPRAMIDE HCL 10 MG/10 ML UDC GT SCH ×2 (10:03→20:46)
[2021-09-21] MEDS: PANTOPRAZOLE SODIUM 40 MG/VIAL (PROTONIX) IVP SCH (10:03)
[2021-09-21] MEDS: RILUZOLE 50 MG TABLET GT SCH ×2 (10:03→20:46)
[2021-09-21] MEDS: ENOXAPARIN SODIUM 40 MG/0.4 ML SYRINGE SUBCUT SCH (10:05)
[2021-09-21] MEDS: CIPROFLOXACIN LACT 400 MG/D5W 200 ML IV SCH ×2 (10:12→21:34)
[2021-09-21] MEDS ORDERED: POTASSIUM CHLORIDE 20 MEQ/PKT PACKET GT ONE (13:00)
[2021-09-21 16:33] VITALS: BP_SYST 126
[2021-09-21 20:00] VITALS: BP_SYST 145
[2021-09-21] MEDS: MELATONIN 5 MG TABLET PO SCH (20:48)
[2021-09-22 00:43] VITALS: BP_SYST 133
[2021-09-22] MEDS: IPRATROPIUM/ALBUTEROL SULFATE 3 ML AMPUL.NEB (DUONEB) INH SCH ×4 (01:00→20:12)
[2021-09-22] MEDS: PIPERACILLIN/TAZO 3.375/DEX-IS 50 ML IV SCH ×3 (04:28→21:23)
[2021-09-22 08:05] VITALS: BP_SYST 128
[2021-09-22 08:59] VITALS: BP_SYST 133
[2021-09-22] MEDS: 0.45% NACL 1,000 ML IV SCH ×3 (09:48→18:26)
[2021-09-22] MEDS: RILUZOLE 50 MG TABLET GT SCH ×2 (10:17→21:22)
[2021-09-22] MEDS: METOCLOPRAMIDE HCL 10 MG/10 ML UDC GT SCH ×2 (10:17→21:22)
[2021-09-22] MEDS: CIPROFLOXACIN LACT 400 MG/D5W 200 ML IV SCH ×2 (10:18→22:03)
[2021-09-22] MEDS: PANTOPRAZOLE SODIUM 40 MG/VIAL (PROTONIX) IVP SCH (10:18)
[2021-09-22] MEDS: ENOXAPARIN SODIUM 40 MG/0.4 ML SYRINGE SUBCUT SCH (10:20)
[2021-09-22 12:00] VITALS: BP_SYST 135
[2021-09-22 16:00] VITALS: BP_SYST 138
[2021-09-22 20:00] VITALS: BP_SYST 137
[2021-09-22] MEDS: MELATONIN 5 MG TABLET PO SCH (21:22)
[2021-09-23 01:00] VITALS: BP_SYST 135
[2021-09-23] MEDS: 0.45% NACL 1,000 ML IV SCH ×4 (01:45→21:45)
[2021-09-23] MEDS: IPRATROPIUM/ALBUTEROL SULFATE 3 ML AMPUL.NEB (DUONEB) INH SCH ×4 (02:17→19:39)
[2021-09-23] MEDS: PIPERACILLIN/TAZO 3.375/DEX-IS 50 ML IV SCH ×3 (04:34→20:36)
[2021-09-23 07:19] LABS: BASOPHILS % (AUTO) 0.2 % (0.0-2.0); EOSINOPHILS # (AUTO) 0.1 K/uL (0.0-0.4); EOSINOPHILS % (AUTO) 0.4 % (0.0-4.0); HEMATOCRIT 31.6 % (36-54); HEMOGLOBIN 10.7 g/dL (14.0-18.0); LYMPHOCYTES # (AUTO) 0.9 K/uL (1.0-5.5); LYMPHOCYTES % (AUTO) 5.6 % (20.5-51.5); MEAN CORPUSCULAR HEMOGLOBIN 31 pg (27-31); MEAN CORPUSCULAR HGB CONC 34 % (32-36); MEAN CORPUSCULAR VOLUME 92 fL (79.0-98.0); MONOCYTES % (AUTO) 12.5 % (1.7-9.3); NEUTROPHILS # (AUTO) 13.3 K/uL (1.8-7.7); NEUTROPHILS % (AUTO) 81.3 % (40.0-70.0); PLATELET COUNT (AUTO) 549 K/uL (130-430); RED BLOOD CELL COUNT(AUTO) 3.42 MIL/uL (4.2-6.2); RED CELL DISTRIBUTION WIDTH 15.8 % (9.0-15.0); WHITE BLOOD COUNT (AUTO) 16.4 K/uL (4.8-10.8)
[2021-09-23 08:01] LABS: CALCIUM 8.4 mg/dL (8.4-11.0); CREATININE 0.61 mg/dL (0.55-1.30)
[2021-09-23] MEDS: METOCLOPRAMIDE HCL 10 MG/10 ML UDC GT SCH ×2 (09:28→21:52)
[2021-09-23] MEDS: CIPROFLOXACIN LACT 400 MG/D5W 200 ML IV SCH ×2 (09:28→21:54)
[2021-09-23] MEDS: RILUZOLE 50 MG TABLET GT SCH ×2 (09:28→21:53)
[2021-09-23] MEDS: PANTOPRAZOLE SODIUM 40 MG/VIAL (PROTONIX) IVP SCH (09:28)
[2021-09-23] MEDS: ENOXAPARIN SODIUM 40 MG/0.4 ML SYRINGE SUBCUT SCH (09:30)
[2021-09-23 11:32] VITALS: BP_SYST 152
[2021-09-23 12:00] VITALS: BP_SYST 133
[2021-09-23 16:00] VITALS: BP_SYST 142
[2021-09-23] MEDS: ACETAMINOPHEN 650 MG/20.3 ML UDC GT PRN (18:12)
[2021-09-23] MEDS: MELATONIN 5 MG TABLET PO SCH (21:53)
[2021-09-24 01:32] VITALS: BP_SYST 140
[2021-09-24] MEDS: IPRATROPIUM/ALBUTEROL SULFATE 3 ML AMPUL.NEB (DUONEB) INH SCH ×4 (02:54→19:39)
[2021-09-24] MEDS: 0.45% NACL 1,000 ML IV SCH ×4 (03:22→20:32)
[2021-09-24] MEDS: PIPERACILLIN/TAZO 3.375/DEX-IS 50 ML IV SCH ×3 (03:39→20:32)
[2021-09-24 07:10] LABS: BASOPHILS % (AUTO) 0.1 % (0.0-2.0); EOSINOPHILS % (AUTO) 0.3 % (0.0-4.0); HEMATOCRIT 31.4 % (36-54); HEMOGLOBIN 10.5 g/dL (14.0-18.0); LYMPHOCYTES % (AUTO) 6.7 % (20.5-51.5); MEAN CORPUSCULAR HEMOGLOBIN 31 pg (27-31); MEAN CORPUSCULAR HGB CONC 33 % (32-36); MEAN CORPUSCULAR VOLUME 94 fL (79.0-98.0); MONOCYTES # (AUTO) 2.1 K/uL (0.0-1.0); MONOCYTES % (AUTO) 14.3 % (1.7-9.3); NEUTROPHILS # (AUTO) 11.7 K/uL (1.8-7.7); NEUTROPHILS % (AUTO) 78.6 % (40.0-70.0); PLATELET COUNT (AUTO) 455 K/uL (130-430); RED BLOOD CELL COUNT(AUTO) 3.34 MIL/uL (4.2-6.2); RED CELL DISTRIBUTION WIDTH 16.1 % (9.0-15.0); WHITE BLOOD COUNT (AUTO) 14.9 K/uL (4.8-10.8)
[2021-09-24 08:00] VITALS: BP_SYST 104
[2021-09-24 08:07] LABS: CALCIUM 8.3 mg/dL (8.4-11.0); CREATININE 0.55 mg/dL (0.55-1.30)
[2021-09-24] MEDS: CIPROFLOXACIN LACT 400 MG/D5W 200 ML IV SCH ×2 (10:29→21:53)
[2021-09-24] MEDS: RILUZOLE 50 MG TABLET GT SCH ×2 (10:30→21:52)
[2021-09-24] MEDS: PANTOPRAZOLE SODIUM 40 MG/VIAL (PROTONIX) IVP SCH (10:30)
[2021-09-24] MEDS: METOCLOPRAMIDE HCL 10 MG/10 ML UDC GT SCH ×2 (10:30→21:52)
[2021-09-24] MEDS: ENOXAPARIN SODIUM 40 MG/0.4 ML SYRINGE SUBCUT SCH (10:31)
[2021-09-24 12:50] VITALS: BP_SYST 116
[2021-09-24 16:31] VITALS: BP_SYST 118
[2021-09-24 20:20] VITALS: BP_SYST 100
[2021-09-24] MEDS: MELATONIN 5 MG TABLET PO SCH (21:52)
[2021-09-25] VITALS (7 sets, daily range): BP systolic 103–132
[2021-09-25] MEDS: IPRATROPIUM/ALBUTEROL SULFATE 3 ML AMPUL.NEB (DUONEB) INH SCH ×4 (00:12→19:30)
[2021-09-25] MEDS: 0.45% NACL 1,000 ML IV SCH ×2 (04:08→14:21)
[2021-09-25] MEDS: PIPERACILLIN/TAZO 3.375/DEX-IS 50 ML IV SCH ×3 (04:08→21:01)
[2021-09-25] MEDS: METOCLOPRAMIDE HCL 10 MG/10 ML UDC GT SCH ×2 (10:05→21:02)
[2021-09-25] MEDS: ENOXAPARIN SODIUM 40 MG/0.4 ML SYRINGE SUBCUT SCH (10:06)
[2021-09-25] MEDS: PANTOPRAZOLE SODIUM 40 MG/VIAL (PROTONIX) IVP SCH (10:07)
[2021-09-25] MEDS: CIPROFLOXACIN LACT 400 MG/D5W 200 ML IV SCH ×2 (10:07→21:02)
[2021-09-25] MEDS: RILUZOLE 50 MG TABLET GT SCH ×2 (10:10→21:03)
[2021-09-25] MEDS: NACL 0.9% 1,000 ML IV SCH (17:30)
[2021-09-25] MEDS: MELATONIN 5 MG TABLET PO SCH (21:02)
[2021-09-26] MEDS: IPRATROPIUM/ALBUTEROL SULFATE 3 ML AMPUL.NEB (DUONEB) INH SCH ×4 (00:12→20:51)
[2021-09-26 00:17] VITALS: BP_SYST 144
[2021-09-26] MEDS: PIPERACILLIN/TAZO 3.375/DEX-IS 50 ML IV SCH ×3 (04:12→20:42)
[2021-09-26] MEDS: NACL 0.9% 1,000 ML IV SCH ×2 (07:48→23:09)
[2021-09-26 08:00] VITALS: BP_SYST 129
[2021-09-26] MEDS: CIPROFLOXACIN LACT 400 MG/D5W 200 ML IV SCH ×2 (10:41→20:39)
[2021-09-26] MEDS: PANTOPRAZOLE SODIUM 40 MG/VIAL (PROTONIX) IVP SCH (10:41)
[2021-09-26] MEDS: METOCLOPRAMIDE HCL 10 MG/10 ML UDC GT SCH ×2 (10:41→20:38)
[2021-09-26] MEDS: RILUZOLE 50 MG TABLET GT SCH ×2 (10:42→20:38)
[2021-09-26] MEDS: ENOXAPARIN SODIUM 40 MG/0.4 ML SYRINGE SUBCUT SCH (10:44)
[2021-09-26 11:09] VITALS: BP_SYST 129
[2021-09-26 12:17] LABS: BASOPHILS % (AUTO) 0.4 % (0.0-2.0); EOSINOPHILS % (AUTO) 0.5 % (0.0-4.0); HEMATOCRIT 27.3 % (36-54); HEMOGLOBIN 9.3 g/dL (14.0-18.0); LYMPHOCYTES % (AUTO) 10.9 % (20.5-51.5); MEAN CORPUSCULAR HEMOGLOBIN 31 pg (27-31); MEAN CORPUSCULAR HGB CONC 34 % (32-36); MEAN CORPUSCULAR VOLUME 92 fL (79.0-98.0); MONOCYTES # (AUTO) 0.8 K/uL (0.0-1.0); MONOCYTES % (AUTO) 9.6 % (1.7-9.3); NEUTROPHILS # (AUTO) 6.9 K/uL (1.8-7.7); NEUTROPHILS % (AUTO) 78.6 % (40.0-70.0); PLATELET COUNT (AUTO) 409 K/uL (130-430); RED BLOOD CELL COUNT(AUTO) 2.99 MIL/uL (4.2-6.2); RED CELL DISTRIBUTION WIDTH 15.7 % (9.0-15.0); WHITE BLOOD COUNT (AUTO) 8.8 K/uL (4.8-10.8)
[2021-09-26 16:00] VITALS: BP_SYST 132
[2021-09-26 19:59] VITALS: BP_SYST 159
[2021-09-26] MEDS: MELATONIN 5 MG TABLET PO SCH (20:38)
[2021-09-26] MEDS: cloNIDine HCL 0.1 MG TABLET PO PRN (20:38)
[2021-09-27] VITALS (14 sets, daily range): BP systolic 89–161
[2021-09-27] MEDS: cloNIDine HCL 0.1 MG TABLET PO PRN (00:45)
[2021-09-27] MEDS: IPRATROPIUM/ALBUTEROL SULFATE 3 ML AMPUL.NEB (DUONEB) INH SCH ×4 (01:46→19:27)
[2021-09-27] MEDS: PIPERACILLIN/TAZO 3.375/DEX-IS 50 ML IV SCH ×3 (03:08→21:05)
[2021-09-27] MEDS: HYDROcodone/ACETAMIN 5-325 MG TAB (NORCO/ VICODIN) PO PRN ×2 (07:32→21:07)
[2021-09-27] MEDS: CIPROFLOXACIN LACT 400 MG/D5W 200 ML IV SCH ×2 (08:36→21:06)
[2021-09-27] MEDS: RILUZOLE 50 MG TABLET GT SCH ×2 (08:38→21:06)
[2021-09-27] MEDS: PANTOPRAZOLE SODIUM 40 MG/VIAL (PROTONIX) IVP SCH (08:38)
[2021-09-27] MEDS: METOCLOPRAMIDE HCL 10 MG/10 ML UDC GT SCH ×2 (08:38→21:06)
[2021-09-27] MEDS: ENOXAPARIN SODIUM 40 MG/0.4 ML SYRINGE SUBCUT SCH (08:39)
[2021-09-27 10:44] LABS: FREE T4 (FREE THYROXINE) 1.3 ng/dl (0.8-1.5); THYROID STIMULATING HORMONE 5.23 uIu/mL (0.36-3.74)
[2021-09-27] MEDS ORDERED: NACL 0.9% 1,000 ML IV ONE (13:00)
[2021-09-27] MEDS: NACL 0.9% 1,000 ML IV SCH (13:00)
[2021-09-27] MEDS: MELATONIN 5 MG TABLET PO SCH (21:06)
[2021-09-28] VITALS (7 sets, daily range): BP systolic 136–154
[2021-09-28] MEDS: IPRATROPIUM/ALBUTEROL SULFATE 3 ML AMPUL.NEB (DUONEB) INH SCH ×4 (01:35→19:58)
[2021-09-28] MEDS: PIPERACILLIN/TAZO 3.375/DEX-IS 50 ML IV SCH ×2 (04:00→12:00)
[2021-09-28] MEDS: NACL 0.9% 1,000 ML IV SCH ×2 (06:12→13:52)
[2021-09-28 09:26] LABS: HEMATOCRIT 29.4 % (36-54); HEMOGLOBIN 8.8 g/dL (14.0-18.0); RED BLOOD CELL COUNT(AUTO) 3.12 MIL/uL (4.2-6.2); WHITE BLOOD COUNT (AUTO) 7.6 K/uL (4.8-10.8)
[2021-09-28 09:27] LABS: LYMPHOCYTES % (AUTO) 17.1 % (20.5-51.5); MEAN CORPUSCULAR HEMOGLOBIN 32 pg (27-31); MEAN CORPUSCULAR HGB CONC 34 % (32-36); MEAN CORPUSCULAR VOLUME 94 fL (79.0-98.0); MONOCYTES % (AUTO) 11.2 % (1.7-9.3); NEUTROPHILS % (AUTO) 69.5 % (40.0-70.0); PLATELET COUNT (AUTO) 423 K/uL (130-430); RED CELL DISTRIBUTION WIDTH 15.9 % (9.0-15.0)
[2021-09-28 09:28] LABS: BASOPHILS # (AUTO) 0.1 K/uL (0.0-0.2); BASOPHILS % (AUTO) 0.8 % (0.0-2.0); EOSINOPHILS # (AUTO) 0.1 K/uL (0.0-0.4); EOSINOPHILS % (AUTO) 1.4 % (0.0-4.0); LYMPHOCYTES # (AUTO) 1.3 K/uL (1.0-5.5); MONOCYTES # (AUTO) 0.9 K/uL (0.0-1.0); NEUTROPHILS # (AUTO) 5.3 K/uL (1.8-7.7)
[2021-09-28] MEDS: RILUZOLE 50 MG TABLET GT SCH ×2 (09:31→20:29)
[2021-09-28] MEDS: METOCLOPRAMIDE HCL 10 MG/10 ML UDC GT SCH ×2 (09:31→20:29)
[2021-09-28] MEDS: LEVOTHYROXINE SODIUM 0.05 MG TABLET GT SCH (09:31)
[2021-09-28] MEDS: PANTOPRAZOLE SODIUM 40 MG/VIAL (PROTONIX) IVP SCH (09:31)
[2021-09-28] MEDS: ENOXAPARIN SODIUM 40 MG/0.4 ML SYRINGE SUBCUT SCH (09:32)
[2021-09-28] MEDS: CIPROFLOXACIN LACT 400 MG/D5W 200 ML IV SCH ×2 (09:41→20:29)
[2021-09-28] MEDS: MELATONIN 5 MG TABLET PO SCH (20:29)
[2021-09-28] MEDS: cloNIDine HCL 0.1 MG TABLET PO PRN (20:35)
[2021-09-29] MEDS: IPRATROPIUM/ALBUTEROL SULFATE 3 ML AMPUL.NEB (DUONEB) INH SCH ×4 (01:00→20:05)
[2021-09-29 02:14] VITALS: BP_SYST 141
[2021-09-29] MEDS: PIPERACILLIN/TAZO 3.375/DEX-IS 50 ML IV SCH ×3 (04:06→20:06)
[2021-09-29 05:39] VITALS: BP_SYST 141
[2021-09-29] MEDS: NACL 0.9% 1,000 ML IV SCH ×2 (06:51→21:36)
[2021-09-29 08:30] LABS: CALCIUM 8.4 mg/dL (8.4-11.0); CREATININE 0.64 mg/dL (0.55-1.30); POTASSIUM 3.8 mmol/L (3.5-5.1); TOTAL BILIRUBIN 0.1 mg/dL (0.0-1.0)
[2021-09-29 08:31] LABS: ALBUMIN 2.3 g/dL (3.4-4.8)
[2021-09-29] MEDS: METOCLOPRAMIDE HCL 10 MG/10 ML UDC GT SCH ×2 (09:43→21:47)
[2021-09-29] MEDS: PANTOPRAZOLE SODIUM 40 MG/VIAL (PROTONIX) IVP SCH (09:43)
[2021-09-29] MEDS: LEVOTHYROXINE SODIUM 0.05 MG TABLET GT SCH (09:43)
[2021-09-29] MEDS: HYDROcodone/ACETAMIN 5-325 MG TAB (NORCO/ VICODIN) PO PRN (09:44)
[2021-09-29] MEDS: CIPROFLOXACIN LACT 400 MG/D5W 200 ML IV SCH ×2 (09:44→21:50)
[2021-09-29] MEDS: RILUZOLE 50 MG TABLET GT SCH ×2 (10:04→21:50)
[2021-09-29] MEDS: ENOXAPARIN SODIUM 40 MG/0.4 ML SYRINGE SUBCUT SCH (10:10)
[2021-09-29 20:00] VITALS: BP_SYST 146
[2021-09-29] MEDS: MELATONIN 5 MG TABLET PO SCH (21:50)
[2021-09-30] MEDS: IPRATROPIUM/ALBUTEROL SULFATE 3 ML AMPUL.NEB (DUONEB) INH SCH ×4 (03:25→19:34)
[2021-09-30] MEDS: PIPERACILLIN/TAZO 3.375/DEX-IS 50 ML IV SCH ×3 (04:00→20:26)
[2021-09-30 08:28] VITALS: BP_SYST 114
[2021-09-30] MEDS: LEVOTHYROXINE SODIUM 0.05 MG TABLET GT SCH (09:22)
[2021-09-30] MEDS: RILUZOLE 50 MG TABLET GT SCH ×2 (09:23→21:36)
[2021-09-30] MEDS: METOCLOPRAMIDE HCL 10 MG/10 ML UDC GT SCH ×2 (09:23→21:35)
[2021-09-30] MEDS: PANTOPRAZOLE SODIUM 40 MG/VIAL (PROTONIX) IVP SCH (09:23)
[2021-09-30] MEDS: CIPROFLOXACIN LACT 400 MG/D5W 200 ML IV SCH ×2 (09:23→21:36)
[2021-09-30] MEDS: ENOXAPARIN SODIUM 40 MG/0.4 ML SYRINGE SUBCUT SCH (09:24)
[2021-09-30] MEDS ORDERED: HYDROcodone/ACETAMIN 5-325 MG TAB (NORCO/ VICODIN) GT PRN (10:30)
[2021-09-30 11:33] LABS: BASOPHILS # (AUTO) 0.1 K/uL (0.0-0.2); BASOPHILS % (AUTO) 0.4 % (0.0-2.0); EOSINOPHILS # (AUTO) 0.1 K/uL (0.0-0.4); EOSINOPHILS % (AUTO) 0.9 % (0.0-4.0); HEMATOCRIT 34.7 % (36-54); HEMOGLOBIN 11.3 g/dL (14.0-18.0); LYMPHOCYTES % (AUTO) 7.7 % (20.5-51.5); MEAN CORPUSCULAR HEMOGLOBIN 30 pg (27-31); MEAN CORPUSCULAR HGB CONC 33 % (32-36); MEAN CORPUSCULAR VOLUME 93 fL (79.0-98.0); MONOCYTES # (AUTO) 1.5 K/uL (0.0-1.0); MONOCYTES % (AUTO) 11.4 % (1.7-9.3); NEUTROPHILS # (AUTO) 10.5 K/uL (1.8-7.7); NEUTROPHILS % (AUTO) 79.6 % (40.0-70.0); PLATELET COUNT (AUTO) 440 K/uL (130-430); RED BLOOD CELL COUNT(AUTO) 3.74 MIL/uL (4.2-6.2); RED CELL DISTRIBUTION WIDTH 16.7 % (9.0-15.0); WHITE BLOOD COUNT (AUTO) 13.2 K/uL (4.8-10.8)
[2021-09-30 11:49] LABS: CALCIUM 8.3 mg/dL (8.4-11.0); CREATININE 0.59 mg/dL (0.55-1.30)
[2021-09-30] MEDS: NACL 0.9% 1,000 ML IV SCH ×2 (11:54→16:44)
[2021-09-30 12:47] VITALS: BP_SYST 152
[2021-09-30 16:55] VITALS: BP_SYST 140
[2021-09-30] MEDS: MELATONIN 5 MG TABLET PO SCH (21:36)
[2021-09-30 23:13] VITALS: BP_SYST 138
[2021-10-01 00:34] VITALS: BP_SYST 134
[2021-10-01] MEDS: IPRATROPIUM/ALBUTEROL SULFATE 3 ML AMPUL.NEB (DUONEB) INH SCH ×3 (00:42→13:18)
[2021-10-01] MEDS: PIPERACILLIN/TAZO 3.375/DEX-IS 50 ML IV SCH ×3 (04:14→21:04)
[2021-10-01] MEDS: NACL 0.9% 1,000 ML IV SCH ×2 (06:37→21:04)
[2021-10-01 07:55] VITALS: BP_SYST 134
[2021-10-01 08:00] VITALS: BP_SYST 135
[2021-10-01] MEDS: PANTOPRAZOLE SODIUM 40 MG/VIAL (PROTONIX) IVP SCH (09:00)
[2021-10-01] MEDS: METOCLOPRAMIDE HCL 10 MG/10 ML UDC GT SCH ×2 (10:12→21:04)
[2021-10-01] MEDS: RILUZOLE 50 MG TABLET GT SCH ×2 (10:12→21:06)
[2021-10-01] MEDS: LEVOTHYROXINE SODIUM 0.05 MG TABLET GT SCH (10:13)
[2021-10-01] MEDS: ENOXAPARIN SODIUM 40 MG/0.4 ML SYRINGE SUBCUT SCH (10:15)
[2021-10-01] MEDS: CIPROFLOXACIN LACT 400 MG/D5W 200 ML IV SCH ×2 (10:15→22:15)
[2021-10-01 11:42] VITALS: BP_SYST 143
[2021-10-01] MEDS: ACETAMINOPHEN 650 MG/20.3 ML UDC GT PRN (13:51)
[2021-10-01 15:31] VITALS: BP_SYST 141
[2021-10-01 16:17] LABS: BASOPHILS # (AUTO) 0.1 K/uL (0.0-0.2); BASOPHILS % (AUTO) 0.6 % (0.0-2.0); EOSINOPHILS # (AUTO) 0.1 K/uL (0.0-0.4); EOSINOPHILS % (AUTO) 0.8 % (0.0-4.0); HEMATOCRIT 27.5 % (36-54); HEMOGLOBIN 9.3 g/dL (14.0-18.0); LYMPHOCYTES # (AUTO) 1.1 K/uL (1.0-5.5); LYMPHOCYTES % (AUTO) 9.7 % (20.5-51.5); MEAN CORPUSCULAR HEMOGLOBIN 31 pg (27-31); MEAN CORPUSCULAR HGB CONC 34 % (32-36); MEAN CORPUSCULAR VOLUME 92 fL (79.0-98.0); MONOCYTES # (AUTO) 1.3 K/uL (0.0-1.0); MONOCYTES % (AUTO) 11.1 % (1.7-9.3); NEUTROPHILS # (AUTO) 8.9 K/uL (1.8-7.7); NEUTROPHILS % (AUTO) 77.8 % (40.0-70.0); PLATELET COUNT (AUTO) 345 K/uL (130-430); RED BLOOD CELL COUNT(AUTO) 2.98 MIL/uL (4.2-6.2); RED CELL DISTRIBUTION WIDTH 16.3 % (9.0-15.0); WHITE BLOOD COUNT (AUTO) 11.4 K/uL (4.8-10.8)
[2021-10-01] MEDS: MELATONIN 5 MG TABLET PO SCH (21:06)
[2021-10-01 23:06] VITALS: BP_SYST 144
[2021-10-02 00:32] VITALS: BP_SYST 138
[2021-10-02] MEDS: PIPERACILLIN/TAZO 3.375/DEX-IS 50 ML IV SCH ×3 (03:59→18:55)
[2021-10-02 06:33] LABS: BASOPHILS % (AUTO) 0.4 % (0.0-2.0); EOSINOPHILS # (AUTO) 0.1 K/uL (0.0-0.4); EOSINOPHILS % (AUTO) 1.1 % (0.0-4.0); HEMATOCRIT 31.5 % (36-54); HEMOGLOBIN 10.7 g/dL (14.0-18.0); LYMPHOCYTES # (AUTO) 1.2 K/uL (1.0-5.5); LYMPHOCYTES % (AUTO) 9.6 % (20.5-51.5); MEAN CORPUSCULAR HEMOGLOBIN 31 pg (27-31); MEAN CORPUSCULAR HGB CONC 34 % (32-36); MEAN CORPUSCULAR VOLUME 93 fL (79.0-98.0); MONOCYTES # (AUTO) 1.3 K/uL (0.0-1.0); MONOCYTES % (AUTO) 10.2 % (1.7-9.3); NEUTROPHILS # (AUTO) 9.9 K/uL (1.8-7.7); NEUTROPHILS % (AUTO) 78.7 % (40.0-70.0); PLATELET COUNT (AUTO) 362 K/uL (130-430); RED CELL DISTRIBUTION WIDTH 16.6 % (9.0-15.0); WHITE BLOOD COUNT (AUTO) 12.6 K/uL (4.8-10.8)
[2021-10-02] MEDS: NACL 0.9% 1,000 ML IV SCH (06:48)
[2021-10-02] MEDS: IPRATROPIUM/ALBUTEROL SULFATE 3 ML AMPUL.NEB (DUONEB) INH SCH ×3 (07:40→19:35)
[2021-10-02 08:00] VITALS: BP_SYST 139
[2021-10-02] MEDS: CIPROFLOXACIN LACT 400 MG/D5W 200 ML IV SCH (09:37)
[2021-10-02] MEDS: PANTOPRAZOLE SODIUM 40 MG/VIAL (PROTONIX) IVP SCH (09:37)
[2021-10-02] MEDS: METOCLOPRAMIDE HCL 10 MG/10 ML UDC GT SCH ×2 (09:37→21:41)
[2021-10-02] MEDS: LEVOTHYROXINE SODIUM 0.05 MG TABLET GT SCH (09:37)
[2021-10-02] MEDS: ENOXAPARIN SODIUM 40 MG/0.4 ML SYRINGE SUBCUT SCH (09:42)
[2021-10-02 12:00] VITALS: BP_SYST 139
[2021-10-02] MEDS: RILUZOLE 50 MG TABLET GT SCH ×2 (12:49→21:41)
[2021-10-02 15:40] VITALS: BP_SYST 143
[2021-10-02 17:45] VITALS: BP_SYST 140
[2021-10-02 20:05] VITALS: BP_SYST 152
[2021-10-02] MEDS: MELATONIN 5 MG TABLET PO SCH (21:41)
[2021-10-03 01:00] VITALS: BP_SYST 141
[2021-10-03] MEDS: IPRATROPIUM/ALBUTEROL SULFATE 3 ML AMPUL.NEB (DUONEB) INH SCH (01:14)
[2021-10-03] MEDS: PIPERACILLIN/TAZO 3.375/DEX-IS 50 ML IV SCH (03:41)
== END 2021-10-03 07:15 | DRG 720 ==
LOC: SED 16:07 → STU 22:49 → SIC 09-11 09:00 → STU 09-13 17:09
PROVIDERS: ADMIT Internal Medicine; ATTEND Internal Medicine
PROC: 5A1955Z Respiratory Ventilation, Greater than 96 Consecutive Hours (ICD-10-PCS; principal; 2021-09-10)
DX: A41.9 Sepsis, unspecified organism (principal); G12.21 Amyotrophic lateral sclerosis; J69.0 Pneumonitis due to inhalation of food and vomit; G82.50 Quadriplegia, unspecified; J96.11 Chronic respiratory failure with hypoxia; J96.12 Chronic respiratory failure with hypercapnia; J15.1 Pneumonia due to Pseudomonas; J90 Pleural effusion, not elsewhere classified; R13.10 Dysphagia, unspecified; Z20.822 Contact with and (suspected) exposure to COVID-19; G31.9 Degenerative disease of nervous system, unspecified; E03.9 Hypothyroidism, unspecified; Z99.11 Dependence on respirator [ventilator] status; Z93.1 Gastrostomy status; Z93.0 Tracheostomy status
CPT/HCPCS: 36415; 36600; 70450-TC; 71045; 71250-TC; 76376; 76700-TC; 80048; 80053; 80202; 80307; 82040; 82550; 82803-TC; 83605; 83735; 83880; 84100; 84439; 84443; 84484; 85007; 85025; 85027; 85610-TC; 85730-TC; 87040; 87070; 87081; 93005; 93306; 94002; 94003; 94640; 94760; 96374; 96375; 97110-GP; 97530-GP; 99291; C9113; G0378; G0480; G0481; G0482; J0456; J0744; J1650; J2310; J2543; J3370; J3480; J7050; J7060; J7613; J8597; U0003